=== PATIENT | male | born 1985 | race Caucasian/White ===

== ENCOUNTER 2023-04-10 15:18 | Emergency (ER) | payer MEDICAID ==
[~2023-04-10] VITALS: Ht 172.7 cm; Wt 75.0 kg
[2023-04-10 15:23] VITALS: BP 132/78; PULSE 90; RESP 16; TEMP 98; O2SAT 96
== END 2023-04-10 18:40 ==
LOC: ER 15:18
DX: T40.601A Poisoning by unspecified narcotics, accidental (unintentional), initial encounter (principal); X58.XXXA Exposure to other specified factors, initial encounter
CPT/HCPCS: 99283